=== PATIENT | female | born 1950 | race Caucasian/White ===

== ENCOUNTER 2018-10-24 10:15 | Inpatient (IN) ==
[2018-10-24] MEDS ORDERED: NS 1,000 ML IV ONE (11:04)
--- NOTE | 2018-10-24 11:05 | EKG Report ---
Test Performed on : 10/24/2018 10:20:09 AM Test Reason : ams Blood Pressure : / mmHG Vent. Rate : 075 BPM Atrial Rate : 075 BPM P-R Int : 180 ms QRS Dur : 100 ms QT Int : 420 ms P-R-T Axes : 049 -32 -08 degrees QTc Int : 469 ms Normal sinus rhythm. Left axis deviation Abnormal ECG When compared with ECG of 11-MAR-2016 21:49, QT has lengthened Unconfirmed Result
[2018-10-24] MEDS ORDERED: ZOFRAN IV ONE (11:10)
[2018-10-24 11:11] LABS: BLOOD TYPE ARTERIAL; SAMPLE BLOOD
[2018-10-24 11:12] LABS: ALLEN TEST YES; BE 2.4 mmoll (-3.0-3.0); HCO3-(ACT) 26.7 mmoll (20.0-26.0); O2(CT) 19.9 mL/dL (15.0-23.0); O2HB 94.9 % (95.0-99.0); PCO2(98.6) 38 mmHg (35-45); PO2(98.6) 80 mmHg (60-100); SAO2 97.3 % (95.0-100.0); THB 14.9 g/dL (11.5-17.4); pH(98.6) 7.45 (7.35-7.45)
[2018-10-24 11:15] LABS: MODALITY CANNULA
[2018-10-24 11:18] LABS: BASO# 0.01 X1000 (0.0-0.2); BASO% 0.1 % (0.0-0.8); EOS# 0.03 X1000 (0.0-0.7); EOS% 0.3 % (0.0-10.0); HEMATOCRIT 40.1 % (37.0-47.0); HEMOGLOBIN 14.4 g/dL (12.0-16.0); IMM GRAN# 0.08 X1000 (0.0-0.04); IMM GRAN% 0.7 % (0.0-0.5); LYMPH# 1.53 X1000 (1.2-3.4); LYMPH% 13.7 % (20.5-51.1); MCHC 35.9 g/dL (33-37); MCV 86.2 FL (81-99); MONO# 0.74 X1000 (0.11-0.59); MONO% 6.6 % (1.7-9.3); MPV 11.3 FL (7.4-10.4); NEUT# 8.74 X1000 (1.4-6.5); NEUT% 78.6 % (42.2-75.2); PLT 204 X1000 (130-400); RBC 4.65 XMIL (4.2-5.4); RDW 12.3 % (11.5-14.5); WBC 11.13 X1000 (4.8-10.8)
[2018-10-24 11:24] LABS: INR 0.89; PROTIME 12.7 Seconds (11.0-16.0); PTT 27.1 Seconds (22.3-41.8)
--- NOTE | 2018-10-24 11:27 | Diag Imaging Result Doc PS360 ---
EXAM: CHEST-PORTABLE HISTORY: ams TECHNIQUE: Portable chest single view COMPARISON: 03/31/2016 FINDINGS: The lungs are well expanded. The heart is not enlarged. The vessels are not distended. There are no infiltrates. No effusion identified. IMPRESSION: Negative exam. Electronically signed by Neto Riley 10/24/2018 11:24 AM
[2018-10-24 11:46] LABS: URINE SOURCE CLEAN CATCH
[2018-10-24 11:54] LABS: BILIRUBIN URINE NEGATIVE (NEGATIVE); BLOOD URINE NEGATIVE (NEGATIVE); COLOR STRAW; GLUCOSE URINE NEGATIVE (NEGATIVE); KETONE URINE NEGATIVE (NEGATIVE); LEUKOCYTES URINE NEGATIVE (NEGATIVE); NITRITE URINE NEGATIVE (NEGATIVE); PROTEIN URINE NEGATIVE (NEGATIVE); TURBIDITY URINE CLEAR (CLEAR); UROBILINOGEN URINE NORMAL (NORMAL)
[2018-10-24 11:55] LABS: UR EPITHELIAL CELLS <10 /HPF (<10); URINE BACTERIA NEGATIVE /HPF; URINE RBC <10 /HPF (<10); URINE WBC <10 /HPF (<10)
[2018-10-24 11:56] LABS: CREATININE 1.7 mg/dL (0.5-0.9)
[2018-10-24 11:57] LABS: ALB/GLOB RATIO 1.7; ALBUMIN 4.6 g/dL (3.5-5.0); MAGNESIUM 1.1 mg/dL (1.5-2.7); TOTAL BILIRUBIN 0.42 mg/dL (0.20-1.00); TOTAL PROTEIN 7.3 g/dL (6.3-8.3)
[2018-10-24] MEDS ORDERED: LEVAQUIN 750 MG/D5W 750 MG/150 ML IVPB IV ONE (12:06)
[2018-10-24 12:09] LABS: CK INDEX 1.9 (0.0-2.5); CK-MB 6.86 ng/mL (0.0-5.0)
--- NOTE | 2018-10-24 12:21 | Diag Imaging Result Doc PS360 ---
EXAM: CT HEAD W/O CONTRAST HISTORY: Head injury TECHNIQUE: CT head without contrast COMPARISON: None. FINDINGS: No parenchymal hemorrhage. No epidural or subdural hematoma. No subarachnoid hemorrhage. There are chronic microvascular ischemic changes. No mass identified on this noncontrasted exam. No hydrocephalus. No skull fracture. IMPRESSION: 1.No hemorrhage. No injury. 2.Chronic microvascular ischemic changes. This exam was performed using automated exposure control, adjustment of mA or kV according to patient size, and/or use of iterative reconstruction technique. Electronically signed by Neto Riley 10/24/2018 12:19 PM
--- NOTE | 2018-10-24 12:25 | Diag Imaging Result Doc PS360 ---
EXAM: CT ABDOMEN/PELVIS W/O CONTRAST 10/24/2018 HISTORY: colitis, divertilitis TECHNIQUE: This exam was performed using automated exposure control, adjustment of mA or kV according to patient size, and/or use of iterative reconstruction technique. COMMENT: There is some patchy air trapping which is particularly notable in the right lower lobe. There is minimal fluid in the pericardium. There is a granuloma in the spleen. There is no evidence of nephrolithiasis or hydronephrosis. There has been cholecystectomy. There is no evidence of bowel obstruction. There is a fat-containing umbilical hernia. There is no evidence of appendicitis. The urinary bladder is not distended. There is no evidence of free fluid or pelvic masses. There is degenerative disc disease at L5-S1 and bilateral spondylolysis at L5. No evidence of bowel obstruction or colitis is present. There are a few scattered colonic diverticula. IMPRESSION: Diverticulosis coli. No evidence of acute diverticulitis. Electronically signed by Luis Dickerson 10/24/2018 12:23 PM
--- NOTE | 2018-10-24 12:54 | PROVIDER DOCUMENTATION ---
This chart was entered by Kim Guzman Scribe, acting as scribe for Landy Valentine MD. HPI-General Adult - General Chief Complaint: General Adult Stated Complaint: AMS, N/V Time Seen by Provider: 10/24/18 10:36 Source: patient, EMS Allergies/Adverse Reactions: Patient Allergies Allergy/AdvReac Type Severity Reaction Status Date / Time haloperidol [From Haldol] Allergy Unknown Verified 05/30/18 10:51 haloperidol lactate * Allergy Unknown Verified 05/30/18 10:51 [From Haldol] Penicillins Allergy Unknown Verified 05/30/18 10:51 Home Medications: Home Medication List Medication Instructions Recorded Confirmed Last Taken Type Albuterol Sulfate [Proair Hfa] 2 puff INH Q4H PRN PRN 01/10/13 03/31/16 03/10/16 21:00 History 1 Furosemide [Lasix] 80 mg PO DAILY 01/10/13 03/31/16 03/10/16 09:00 History 1 Glipizide [Glipizide Xl] 5 mg PO DAILY 01/10/13 03/31/16 03/10/16 09:00 History 1 Omeprazole 20 mg PO DAILY 01/10/13 03/31/16 03/10/16 09:00 History 1 Allopurinol 100 mg PO BID #0 03/19/16 03/31/16 03/10/16 21:00 Rx 1 Benztropine [Cogentin] 1.5 mg PO BID 30 Days tablet 03/19/16 03/31/16 Unknown Rx Fluphenazine [Prolixin] 20 mg PO BID 30 Days tablet 03/19/16 03/31/16 Unknown Rx Magnesium Chloride [Mag64] 128 mg PO DAILY #0 03/19/16 03/31/16 03/10/16 21:00 Rx 1 Magnesium Oxide [Mag-Ox] 400 mg PO BID #7 tablet 03/19/16 03/31/16 Unknown Rx Melatonin 5 mg PO QHS #30 tablet 03/19/16 03/31/16 Unknown Rx Metformin [Glucophage] 1,000 mg PO BID CC #60 tablet 03/19/16 03/31/16 Unknown Rx Multivit-Min/Folic Acid/Vit K1 400 mcg PO DAILY #30 capsule 03/19/16 03/31/16 Unknown Rx [Multi For Her 50 Plus Softgel] [place]-3 Fatty Acids [Fish Oil] 300 mg PO BID #0 03/19/16 03/31/16 03/10/16 21:00 Rx 1 Prazosin [Minipress] 1 mg PO QHS #30 capsule 03/19/16 03/31/16 Unknown Rx Simvastatin 80 mg PO DAILY #30 tablet 03/19/16 03/31/16 Unknown Rx Trazodone [Desyrel] 50 mg PO QHS #30 tablet 03/19/16 03/31/16 Unknown Rx Allopurinol 300 mg PO DAILY 03/31/16 03/31/16 Unknown History LISINOpril [Prinivil] 2.5 mg PO DAILY 03/31/16 03/31/16 Unknown History Levothyroxine [Synthroid] 50 microgm PO DAILY@0700 04/04/16 04/05/16 Unknown History CefDINIR [Omnicef] 300 mg PO BID #14 capsule 04/07/16 Unknown Rx Methylprednisolone [Medrol Dosepak] 4 mg PO DIRECTED #1 package 04/07/16 Unknown Rx - History of Present Illness -Gen Adult Nature of Presenting Problems: 68 yof presents to the ed via ems for diffrent complaints. daughter at bedside st pt has not urinate in 3 days and pt has been confused. pt c/o n/v/d .pt on exam has no tenderness to abdomen, has ble pain with palpation, tremor to bilateral hands Location of Pain/Injury: reports: lower extremity (pain) Quality of Pain: reports: aching Severity: reports: moderate Onset/Duration: reports: unsure Timing: reports: still present Context/Activities at Onset: reports: light activity Modifying Factors: improves with: nothing. worse with: palpation Associated Symptoms: reports: diarrhea, malaise, nausea, vomiting, weakness. denies: back/neck pain, chest pain, cough, fever/chills Similar Symptoms Previously?: No Recently seen or treated by another doctor?: No Review of Systems - Adult - REVIEW OF SYSTEMS - ADULT ROS:: ROS per family (daughter) Constitutional: reports: [place]. denies: chills, fever Eyes: reports: no symptoms reported Ears, Nose, Mouth & Throat: reports: no symptoms reported Cardiovascular: denies: chest pain, palpitations Respiratory: denies: shortness of breath, wheezing Gastrointestinal: reports: see HPI, diarrhea, nausea, vomiting Genitourinary: reports: no symptoms reported Musculoskeletal: reports: other (BLE pain). denies: back pain, neck pain Integumentary: reports: no symptoms reported Neurological: reports: see HPI, tremors (hands), other (ams mild). denies: dizziness/vertigo, headache/migraines, numbness, paresthesia, slurred speech Psychiatric: reports: no symptoms reported Endocrine: reports: no symptoms reported Hematologic/Lymphatic: reports: no symptoms reported Allergic/Immunologic: reports: no symptoms reported All Other Systems: Reviewed and Negative Past History - Adult - PAST MEDICAL HISTORY-ADULT Review of Records: reports: Nursing Assessment Review, Medications Reviewed Major Childhood Illnesses: reports: denies history Cardiovascular: reports: denies history Respiratory: reports: asthma, COPD Gastrointestinal: reports: denies history Obstetrical/Gynecological: reports: denies history Genitourinary: reports: denies history Musculoskeletal: reports: denies history Neurological: reports: denies history Endocrine/Immune: reports: Diabetes, thyroid disorder Other Conditions: reports: denies history - PRIOR SURGERIES/PROCEDURES Surgical/Procedure History: reports: none - IMMUNIZATION STATUS Childhood Immunizations: See Nurse Assessment Flu Vaccine: See Nurse Assessment - FAMILY HISTORY Family History: reviewed, not pertinent - SOCIAL HISTORY Smoking: cigarettes, less than 1 pack/day Provider spent 3-5 mins advising pt. on dangers of tobacco.: Discussed manners to quit use, and f/u contacts for add'l counseling. Substance Use: denies Alcohol Use Frequency: never Living Situation: family Physical Exam-General - PHYSICAL EXAM-ADULT Initial Vital Signs Reviewed: Yes - CONSTITUTIONAL General Appearance: appears well, alert, obese - EYES Eyes: PERRL/EOMI, pink conjunctivae - HEAD, EARS, NOSE, MOUTH & THROAT HENMT: moist mucous membranes - NECK Neck: full range of motion, supple, normal inspection - RESPIRATORY Respiratory: chest non-tender, lungs clear, normal breath sounds - CARDIOVASCULAR Cardiovascular: normal peripheral pulses, regular rate, rhythm - GASTROINTESTINAL (ABDOMEN) Abdominal Exam: normal bowel sounds, non tender, soft - LYMPHATIC Lymphatic: no adenopathy - MUSCULOSKELETAL Back Exam: normal inspection, no CVA tenderness, no vertebral tenderness Extremity: normal inspection, no pedal edema, normal capillary refill, pelvis stable, tenderness (BLE) - SKIN Integumentary: normal color, normal turgor, warm/dry - NEUROLOGIC Neurologic: grossly normal, no motor/sensory deficits - PSYCHIATRIC Psych/Mental Status: normal mood/affect, normal thought content, normal thought process, oriented x 3 Progress - PLAN OF CARE/RESULTS Progress/Plan/Lab Results: Vital Signs - 8 hr 10/24/18 10:21 Temperature 97.5 F L Pulse Rate 74 Respiratory Rate 16 Blood Pressure 135/65 O2 Sat by Pulse Oximetry 91 L Laboratory Results - last 24 hr 10/24/18 10/24/18 10/24/18 10:24 10:34 11:05 WBC 11.13 H RBC 4.65 Hgb 14.4 Hct 40.1 MCV 86.2 MCH 31.0 MCHC 35.9 RDW Std Deviation 12.3 Plt Count 204 MPV 11.3 H Immature Gran % (Auto) 0.7 H Neut % (Auto) 78.6 H Lymph % (Auto) 13.7 L [place] % (Auto) 6.6 Eos % (Auto) 0.3 Baso % (Auto) 0.1 Immature Gran # (Auto) 0.08 H Neut # (Auto) 8.74 H Lymph # (Auto) 1.53 [place] # (Auto) 0.74 H Eos # (Auto) 0.03 Baso # (Auto) 0.01 Specimen Type ARTERIAL Sample Site R RADIAL pH 7.45 pCO2 38 pO2 80 HCO3 26.7 H Base Excess 2.4 Oxyhemoglobin 94.9 L ABG O2 Sat (Calculated) 19.9 ABG O2 Saturation 97.3 ABG Carboxyhemoglobin 1.60 ABG Methemoglobin 1.0 Krzysztof Test YES A-a O2 Difference 72.0 Total Hemoglobin 14.9 Lactate 2.20 Liter Flow 2.0 Blood Gas Modality CANNULA FiO2 % 28.0 POC Glucose 209 H Orders Category Date Time Status Cardiac Monitoring DIRECTED Care 10/24/18 10:52 Active Finger Stick Blood Sugar (ED) DIRECTED Care 10/24/18 10:52 Active Oxygen Therapy- ED Nursing DIRECTED Care 10/24/18 10:52 Active Saline Loc NOW Care 10/24/18 10:52 Active CHEST-PORTABLE [RAD] Stat Exams 10/24/18 10:[address] HEAD W/O CONTRAST [CT] Stat Exams 10/24/18 10:54 Ordered ABG [RESP] Routine Lab 10/24/18 11:05 Completed CBC WITH ELECTRONIC DIFF [HEME] Stat Lab 10/24/18 10:34 Completed CK PROFILE [SP CHEM] Stat Lab 10/24/18 11:00 Received COMPREHENSIVE METABOLIC PANEL [CHEM] Stat Lab 10/24/18 11:00 Received LACTATE, PLASMA [CHEM] Stat Lab 10/24/18 11:21 Ordered LIPASE [CHEM] Stat Lab 10/24/18 11:00 Received MAGNESIUM [CHEM] Stat Lab 10/24/18 11:00 Received PHOSPHORUS [CHEM] Stat Lab 10/24/18 11:10 Ordered PROTIME WITH INR [COAG] Stat Lab 10/24/18 10:34 Received PTT [COAG] Stat Lab 10/24/18 10:34 Received TROPONIN T Stat Lab 10/24/18 10:34 Received URINALYSIS W/POSS RFLX CULT [URINALYSIS] Stat Lab 10/24/18 11:10 Ordered 0.9% Sodium Chloride Inj [Ns] 1,000 ml Med 10/24/18 11:04 Active IV 999 mls/hr Ondansetron [Zofran] Med 10/24/18 11:10 Discontinued 4 mg IV NOW ONE Altered Mental Status Stat Oth 10/24/18 10:52 Ordered EKG [EKG] Stat Ther 10/24/18 10:52 Draft Result Diagrams: 10/24/18 10:34 10/24/18 10:34 - EKG 1 Time of EKG reading by physician:: 10:20 EKG Read and Signed by:: Enrico Cifuentes EKG Interpretation (*Must complete 3 of following elements*): Abnormal Rate: 75 Rhythm: nsr [place]: left QRS: normal [place] Interval: normal ST Wave: normal Prior EKG Comparison: no prior EKG - XRAY 1 XRAY: Bilateral XRAY Study: Chest Impression: See EMR Report (EXAM: CHEST-PORTABLE HISTORY: ams TECHNIQUE: Portable chest single view COMPARISON: 03/31/2016 FINDINGS: The lungs are well expanded. The heart is not enlarged. The vessels are not distended. There are no infiltrates. No effusion identified. IMPRESSION: Negative exam. Electronically signed by Neto Riley 10/24/2018 11:24 AM 10/24/18 1124 Interpreting Physician: Neto Riley MD Dictated Date/Time: 10/24/18 1124 cc: Landy Valentine MD; Deion Moran Jr, MD) - CT/MRI 1 CT Study: Abdomen, Pelvis Impression: See EMR Report (EXAM: CT ABDOMEN/PELVIS W/O CONTRAST 10/24/2018 HISTORY: colitis, divertilitis TECHNIQUE: This exam was performed using automated exposure control, adjustment of mA or kV according to patient size, and/or use of iterative reconstruction technique. COMMENT: There is some patchy air trapping which is particularly notable in the right lower lobe. There is minimal fluid in the pericardium. There is a granuloma in the spleen. There is no evidence of nephrolithiasis or hydronephrosis. There has been chol ecystectomy. There is no evidence of bowel obstruction. There is a fat- containing umbilical hernia. There is no evidence of appendicitis. The urinary bladder is not distended. There is no evidence of free fluid or pelvic masses. There is degenerative disc disease at L5-S1 and bilateral spondylolysis at L5. No evidence of bowel obstruction or colitis is present. There are a few scattered colonic diverticula. IMPRESSION: Diverticulosis coli. No evidence of acute diverticulitis. Electronically signed by Luis Dickerson 10/24/2018 12:23 PM 10/24/18 1223 Interpreting Physician: Luis Dickerson MD Dictated Date/Time: 10/24/18 1220 cc: Landy Valentine MD; Deion Moran Jr, MD) 2 CT Study: Head Impression: See EMR Report (EXAM: CT HEAD W/O CONTRAST HISTORY: Head injury TECHNIQUE: CT head without contrast COMPARISON: None. FINDINGS: No parenchymal hemorrhage. No epidural or subdural hematoma. No subarachnoid hemorrhage. There are chronic microvascular ischemic changes. No mass identified on this noncontrasted exam. No hydrocephalus. No skull fracture. IMPRESSION: 1.No hemorrhage. No injury. 2.Chronic microvascular ischemic changes. This exam was performed using automated exposure control, adjustment of mA or kV according to patient size, and/or use of iterative reconstruction technique. Electronically signed by Neto Riley 10/24/2018 12:19 PM 10/24/18 1219 Interpreting Physician: Neto Riley MD Dictated Date/Time: 10/24/18 1217 cc: Landy Valentine MD; Deion Moran Jr, MD) - CONSULTS/PCP/HOSPITALIST Notification #1 *Consult/PCP/Hospitalist*: Dr. Mg/Rj RYAN Time Discussed: 12:54 Consult Disposition: Admit Departure - Departure Date of Disposition Decision: 10/24/18 Time of Disposition Decision: 12:53 DIAGNOSIS: Transient alteration of awareness, Hyponatremia Disposition: ADMITTED INPATIENT 09 Certified Medical Emergency: Emergent Condition: Stable Referrals and Follow-Ups: Deion Moran Jr, MD [Primary Care Provider] - - Critical Care Note This patient required my direct & personal management of CC.: No Attestation - Physician/ PAULINE Attestation Patient care was provided by Advanced Practice Provider:: No The physician spent face to face time with patient:: Yes Advanced Practice Provider documentation review:: Supervising physician onsite and consulted in the evaluation and care of this patient. The physician did have a face to face encounter with the patient. This chart was documented by the indicated scribe, (Kim Guzman Scribe) and accurately reflects the services I performed and decisions made by me, Landy Valentine MD, as attested by the provider's signature.
[2018-10-24] MEDS ORDERED: KLOR-CON PO ONE ×2 (13:06→19:24)
[2018-10-24] MEDS ORDERED: MAGNESIUM SULFATE 4 GM/S.W.I. 4 GM/100 ML IVPB IV ONE (13:06)
[2018-10-24] MEDS ORDERED: ZOFRAN IV PRN (14:32)
[2018-10-24] MEDS: NS 1,000 ML IV SCH (15:25)
[2018-10-24] MEDS ORDERED: LASIX IV ONE (16:59)
[2018-10-24] MEDS: HUMULIN R SUBQ SCH ×2 (17:13→20:53)
[2018-10-24 17:56] LABS: UR CREAT RANDOM 21.6 mg/dL (11-20); UR PROT RANDOM < 4.0 mg/dL
--- NOTE | 2018-10-24 17:57 | HISTORY AND PHYSICAL ---
PRIMARY CARE PHYSICIAN: Dr. Deion Moran. CHIEF COMPLAINT: Progressive weakness. HISTORY OF PRESENT ILLNESS: Ms. Mishra is a 68-year-old female with a history of COPD, schizoaffective disorder, hypothyroidism,and hypertension, who presents with 1 week of progressive weakness. She denies any specific area of weakness; rather, she has described more of a lethargy- type picture, having difficulty with activities of daily living including getting up and walking around, eating, dressing herself, etc. She has also had a low output of urination with inability to void for the past 3 days. Her daughter brought her to the [place] ER last week, and she was discharged home with instructions to follow up with her PCP. The symptoms have not improved since that time, and they decided to come in today. In the ER they had multiple labs and diagnostics done. A head CT was done and showed chronic changes, nothing acute. Abdomen and pelvis CT showed diverticulosis without evidence of acute diverticulitis; however, her chemistry did reveal a critical hyponatremia of 119. She did have an episode of nausea, vomiting and diarrhea this morning, but other than that, no episodes of volume loss. She is hemodynamically stable. Will admit her for further treatment and evaluation. PAST MEDICAL HISTORY: 1. CKD, baseline unknown. She is followed by Dr. James and is apparently set to have another evaluation in the coming days or weeks. 2. Schizoaffective disorder, on multiple psychiatric medications. 3. Hypertension. 4. Type 2 diabetes not requiring insulin. 5. Hypothyroidism. 6. Morbid obesity. 7. COPD requiring nocturnal oxygen. 8. History of cervical cancer. PAST SURGICAL HISTORY: 1. Appendectomy. 2. Cholecystectomy. SOCIAL HISTORY: She quit smoking some time ago. She lives with her sister, who is currently not at the bedside, but her daughter is there. No tobacco, alcohol or drug use. REVIEW OF SYSTEMS: A 14-point review of systems was obtained and found to be negative with the exception of the HPI. ALLERGIES: Haldol, penicillin. HOME MEDICATIONS: Not yet compiled by the nursing staff. Will update appropriately. PHYSICAL EXAMINATION: VITAL SIGNS: Blood pressure 124/64, heart rate 77, respiratory rate 18, 02 saturation 98% on nasal cannula, temperature 98.1. GENERAL: This is a disheveled-appearing 68-year-old female lying in the hospital bed, slightly lethargic but in no acute distress . NEUROLOGIC: She is a little bit slow to respond; however, she answers orientation questions correctly and follows commands without focal deficits. HEENT: Head is atraumatic and normocephalic. Her pupils are equal, round, and reactive to light. Her oral mucosa is slightly dry. NECK: Supple. Trachea is midline. There is no JVD. CHEST: Diminished at the bases but clear to auscultation bilaterally. CARDIOVASCULAR: Regular rate and rhythm. S1 and S2 noted. No murmurs. GI: Soft, nondistended, nontender. Bowel sounds are hypoactive. EXTREMITIES: No edema. Pulses 1+ bilaterally. DIAGNOSTIC DATA: Head CT is negative with chronic changes, nothing acute. Abdomen and pelvis CT shows diverticulosis. No evidence of diverticulitis. EKG: Sinus rhythm. No acute ST or T abnormalities. First-degree AV block. Chest x-ray is negative. WBCs 11.13, hemoglobin 14.4, hematocrit 40.1, platelet count 204. INR 0.89. ABG on 2 L nasal cannula: pH of 7.45, CO2 of 38, O2 of 80, bicarbonate of 26.7. Sodium is 120, potassium 3, chloride 73. CO2 of 27, anion gap 19, BUN 49, creatinine 1.7, glucose 181. Phosphorus is 3.3, magnesium 1.1, AST 22, ALT 23, alkaline phosphatase 54, CK 365, CK-MB 6.86, troponin negative. Protein 7.3, lactic acid 1.9. UA is negative. Urine osmolarity is 287. Random creatinine in the urine is 27.2. ASSESSMENT/PLAN: 1. Hyponatremia: The patient is slightly volume depleted, but she is also on multiple psychiatric medicines which could be causing syndrome of inappropriate antidiuretic hormone secretion. Her urine osmolality is greater than her serum osmolality, so syndrome of inappropriate antidiuretic hormone certainly is a possibility; however, we are waiting on urine sodium, and she is slightly volume depleted, so will give her some IV fluids and check a sodium every 6 hours. Will make any adjustments accordingly. 2. Hypokalemia, hypomagnesemia: Will replace those and recheck in the morning. 3. Chronic kidney disease: Exact stage unknown. Dr. James is following, and we will consult him. We have ordered comprehensive urine studies and will give IV fluids. Avoid any nephrotoxic agents. 4. Chronic obstructive pulmonary disease: Not in exacerbation. Continue her nocturnal oxygen and adjust appropriately. 5. Hypertension: Stable. Continue home medications once compiled. 6. Deep venous thrombosis prophylaxis with subcutaneous heparin. 7. Further recommendations to follow. Dictated by SHELBY Zhao for Kelsea Gallegos MD cc: SHELBY Zhao MD [facility]
[2018-10-24 18:54] LABS: MAGNESIUM 2.4 mg/dL (1.5-2.7); POTASSIUM 3.2 mmol/L (3.5-5.1)
[2018-10-24] MEDS: HEPARIN SUBQ SCH (20:57)
[2018-10-24] MEDS: MELATONIN PO SCH (20:57)
--- NOTE | 2018-10-24 23:16 | NEPHROLOGY CONSULTATION ---
DATE: 10/24/2018 REASON FOR CONSULTATION: Hyponatremia. HISTORY OF PRESENT ILLNESS: Ms. Mishra is a 68-year-old white female with schizoaffective disorder and tardive dyskinesia. She has hypertension, diabetes, obesity, hypothyroidism, COPD. She has been progressively worsening over the last several weeks. Certainly in the last 1 week she has had worsening weakness. She denies excessive thirst, but she has just become progressively unable to perform her normal activities of daily living. She went to the emergency room in [place] 1 week ago, and the family states that the only test was a urinalysis and she was treated with an antibiotic. Symptoms were persistent and unimproved, so she was brought to the emergency room today, where she was diagnosed with hyponatremia and admitted to the hospital. She states that she has had a problem with that before, but it has been many years. She relates a history of heart failure. No other new problems. No PND or orthopnea, swelling, etc. PAST MEDICAL HISTORY: As above. HOME MEDICATIONS: Include omeprazole, glipizide, furosemide, benztropine, melatonin, prazosin, trazodone, lisinopril, levothyroxine, methylprednisolone, Prolixin, metformin, potassium, rosuvastatin, nabumetone, magnesium, multivitamin, allopurinol. ALLERGIES: Haloperidol and penicillin. SOCIAL HISTORY: She lives with her sister. No current alcohol or tobacco, though she is a former smoker. FAMILY HISTORY: Otherwise noncontributory. REVIEW OF SYSTEMS: Otherwise noncontributory. PHYSICAL EXAMINATION: Vital Signs: Blood pressure 124/64, heart rate 77, afebrile. Generally: Obese white female, lying in bed. No distress. Skin: Warm and dry. HEENT: Conjunctivae are pink. Pupils are equal. Oropharynx is clear. She has periodic tongue movement. Neck: Supple. Trachea is midline. Neck vein distention is not present. Heart: PMI nondisplaced. Regular rate and rhythm without gallop or murmur. Lungs: Equal. No crackles or wheezes. Abdomen: Soft, nontender. Bowel sounds present. Extremities: No edema, clubbing, or cyanosis. Neurologic: Pill rolling hand movements bilaterally and lip-smacking. IMPRESSION: Hyponatremia. Euvolemic. Hypoosmotic. Most likely syndrome of inappropriate secretion of antidiuretic hormone. Her medications have been appropriately adjusted. She is receiving normal saline at 75 mL/h. I will recheck her sodium this evening. I counseled about free water restriction. We will check urine osmolality, sodium, and concomitant serum sodium and osmolality. cc: Lonny James MD [facility]
[2018-10-24] MEDS: TYLENOL PO PRN (23:17)
[2018-10-25] MEDS: SYNTHROID PO SCH (06:04)
[2018-10-25] MEDS: NS 1,000 ML IV SCH (06:04)
[2018-10-25] MEDS: PRILOSEC PO SCH (06:05)
[2018-10-25] MEDS: HUMULIN R SUBQ SCH ×4 (06:05→22:13)
[2018-10-25 07:58] LABS: HEMATOCRIT 41.6 % (37.0-47.0); HEMOGLOBIN 14.8 g/dL (12.0-16.0); MCH 31.7 PG (27-31); MCHC 35.6 g/dL (33-37); MCV 89.1 FL (81-99); MPV 10.9 FL (7.4-10.4); RBC 4.67 XMIL (4.2-5.4); RDW 12.6 % (11.5-14.5); WBC 8.86 X1000 (4.8-10.8)
[2018-10-25] MEDS: HEPARIN SUBQ SCH ×2 (08:10→22:12)
[2018-10-25 08:58] LABS: CALCIUM 9.5 mg/dL (8.8-10.2); CREATININE 1.2 mg/dL (0.5-0.9); PHOSPHORUS 2.6 mg/dL (2.7-4.5); POTASSIUM 3.4 mmol/L (3.5-5.1)
[2018-10-25] MEDS ORDERED: POTASSIUM PHOSPHATE 20 MMOL in NS 250 ML IV ONE (09:26)
--- NOTE | 2018-10-25 14:40 | NEPHROLOGY PROGRESS NOTE ---
DATE: 10/25/2018 TIME SEEN: 0840. SUBJECTIVE: Ms. Mishra is actually standing at her bedside. She is looking for her breakfast. She continues to be attached to her IV of normal saline. Slight wobbly on her feet. The patient was placed in a chair. OBJECTIVE: Vital signs: Her most recent vital signs, temperature 97.6, blood pressure 117/40, heart rate 75, respirations 16. She is on room air. Last recorded saturation 93%. She has had 0 recorded in. She is on a fluid restriction. She has had 3,280 out to Mosley catheter. Labs: Sodium is 126, potassium 3.4, chloride is 87, CO2 23, BUN 32, creatinine 1.2, glucose 158. The patient has an anion gap of 16, calcium of 9.5, phosphorus 2.6, magnesium 2.1. She has an albumin of 4. White count 8.86, hemoglobin 14.8, hematocrit 41.6, with a platelet count of 183,000. PHYSICAL EXAMINATION: General: This is a 68-year-old white female. She appears frail. No acute distress. Skin: Warm and dry. HEENT: Normocephalic, atraumatic. Conjunctiva is pale. She has SADIE. Mucous membranes are dry. Neck: Supple. Trachea midline. No evidence of JVD. Cardiovascular: She is regular rate and rhythm. She is without murmur or gallop. Lungs: Clear to auscultation bilaterally. Equal excursion. On room air. Abdomen: Large, round, soft, nontender. Positive bowel sounds. Genitourinary: Mosley catheter is in place with adequate urine documented out. Extremities: Have no edema. No clubbing or cyanosis. Neurological: The patient continues to have fine tremors to bilateral upper extremities. She is awake to person and to place. She is forgetful to most recent events. ASSESSMENT AND PLAN: 1. Hyponatremia. The patient appears to be euvolemic. She has hypoosmotic with a low sodium and urine osmolality. More than likely this is syndrome of inappropriate secretion of ADH. Her medications have been adjusted appropriately. She has received normal saline at 75 mL an hour with Lasix 40 mg x1 dose yesterday evening. She remains on a free water fluid restriction. Her sodium has corrected from 120 to 126. We have labs ordered again at 1 p.m. to evaluate any further correction. We will stop her normal saline at this time and will look for these labs at a later date. 2. Acute kidney injury. The patient's creatinine has slowly improved. It is now down to 1.2 from 1.7 with a noted baseline of 0.7 approximately several years ago. No current labs. 3. Electrolytes and acid-base balance. As mentioned above with her sodium. The rest is stable. 4. Anemia. This is in target. 5. Altered mental status. This is slowly improving. I would like to thank you for allowing us to follow with this patient. Dictated by SHELBY Mistry for Lonny James MD cc: SHELBY Mistry MD
[2018-10-25] MEDS ORDERED: D5W 250 ML IV SCH (15:30)
--- NOTE | 2018-10-25 18:42 | PROGRESS NOTE ---
DATE: 10/25/2018 SUBJECTIVE: The patient is awake and more alert today. She is asking for her home medications to be restarted. OBJECTIVE: Vital Signs: Temperature 98.2 degrees, blood pressure 126/59, heart rate 72, respirations 20, O2 saturation is 100% on room air. General: This is a chronically ill-appearing elderly female sitting at the edge of the bed in no acute distress. Heart: S1, S2 normal. Regular rate and rhythm. Lungs: Equal air entry bilaterally. No crackles. No rales. Abdomen: Positive bowel sounds. Soft, nontender, nondistended. Extremities: Trace pedal edema. Neurologic: The patient is alert and oriented x4. LABS: White blood cell count 8.8, hemoglobin 14, hematocrit 41, platelets 183,000. Sodium 126, potassium 3.4, chloride 87, CO2 23, BUN 32, creatinine 1.2, glucose 158, phosphorus 2.6, magnesium 2.1. ASSESSMENT AND PLAN: 1. Symptomatic hyponatremia. The patient's sodium has improved. The patient is now on a fluid restriction and normal saline has been discontinued. The patient was on Prolixin, which does cause a syndrome of inappropriate antidiuretic hormone phenomenon. Further management as directed by the frame sample and pattern supervisor. 2. Acute kidney injury . Improved. 3. Schizoaffective disorder. The patient has been on Prolixin for over 10 years and she has never had an issue with low sodium. At this time, her antipsychotic medication is on hold due to her low sodium. She will likely need to be started on an alternative antipsychotic. 4. Diabetes mellitus type 2. Continue on sliding scale insulin. Continue to hold the metformin. 5. Hypothyroidism. Continue on Synthroid. 6. Morbid obesity. Aware. 7. Hypokalemia. We will replace potassium. 8. Hypophosphatemia. We will replace the phosphorus. 9. Disposition. Will plan to discharge the patient home once she is medically stable. Physical Therapy has been consulted. cc: Kelsea Gallegos MD MTDD
[2018-10-25] MEDS: MELATONIN PO SCH (22:13)
[2018-10-26] MEDS: HUMULIN R SUBQ SCH ×4 (06:27→20:39)
[2018-10-26] MEDS: PRILOSEC PO SCH (06:27)
[2018-10-26] MEDS: SYNTHROID PO SCH (06:27)
[2018-10-26 08:02] LABS: AGAP 12; CHLORIDE 92 mmol/L (98-107); POTASSIUM 3.2 mmol/L (3.5-5.1); SODIUM 132 mmol/L (136-145); TCO2 28 mmol/L (25-35)
[2018-10-26 08:03] LABS: BUN 17 mg/dL (8-22); CALCIUM 9.7 mg/dL (8.8-10.2); COSMO 269; CREATININE 0.9 mg/dL (0.5-0.9); ESTIMATED GFR > 60; GLUCOSE 156 mg/dL (70-104); PHOSPHORUS 2.5 mg/dL (2.7-4.5)
[2018-10-26] MEDS ORDERED: KLOR-CON PO ONE (08:31)
[2018-10-26] MEDS: HEPARIN SUBQ SCH ×2 (09:21→20:35)
[2018-10-26] MEDS ORDERED: D5W 250 ML IV SCH (09:45)
[2018-10-26] MEDS ORDERED: DULCOLAX PR ONE (10:09)
[2018-10-26] MEDS: COLACE PO SCH ×2 (13:17→20:36)
[2018-10-26] MEDS: MIRALAX PO SCH ×2 (13:17→20:36)
--- NOTE | 2018-10-26 13:28 | PROGRESS NOTE ---
DATE: 10/26/2018 SUBJECTIVE: The patient is awake and alert. She states that she feels a lot better. She complains of constipation. OBJECTIVE: Vital Signs: Temperature 98.1 degrees, blood pressure 129/62, heart rate 70, respirations 18, O2 saturation is 96% on room air. General: This is an elderly female sitting up in bed, in no acute distress. Heart: S1, S2 normal. Regular rate and rhythm. Lungs: Clear to auscultation bilaterally. No wheezing. No rales. No rhonchi. Abdomen: Positive bowel sounds. Soft, nontender, nondistended. Extremities: No edema. No cyanosis. Neurologic: The patient is alert and oriented x3. Labs: Sodium 132, potassium 3.2, chloride 92, CO2 28, BUN 17, creatinine 0.6, glucose 156, phosphorus 2.5. ASSESSMENT AND PLAN: 1. Hyponatremia. Slowly improving. The patient is currently on a fluid restriction. Further management as per the stroke belt sander operator. 2. Acute kidney injury. Resolved. 3. Schizoaffective disorder. I spoke to Dr. Carter, the patient's outpatient psychiatrist, and he has recommended to start the patient on perphenazine. He stated that if the patient remains off of her antipsychotic medication for too long, she may have a psychotic break. We will start the recommended medication today and monitor her sodium level closely. 4. Hypothyroidism. Continue on Synthroid. 5. Diabetes mellitus type 2. Continue on sliding scale insulin. 6. Constipation. We will start the patient on laxative therapy. 7. Hypokalemia. Will replace the potassium. 8. Deep vein thrombosis prophylaxis. Continue on heparin. 9. Disposition. Continue to work with physical therapy. The patient will be discharged home once medically stable. cc: Kelsea Gallegos MD MTDD
--- NOTE | 2018-10-26 14:54 | NEPHROLOGY PROGRESS NOTE ---
DATE: 10/26/2018 SUBJECTIVE: Patient resting in bed. She is awake and alert. She is able to tell me that she has not had a bowel movement in 2 days. OBJECTIVE: Vital Signs: Temperature 98.5, pulse 69, respiratory rate 18, blood pressure 131/65. Intake 860 mL. Output 3.3 L. General: This is a elderly female resting in bed. Awake and alert. She does not appear in acute distress. HEENT: Normocephalic, atraumatic. Conjunctivae pale. Oral mucosa is dry. Neck: Supple, without JVD. Cardiovascular: Regular rate and rhythm. No murmur or gallop. Pulmonary: She is clear bilaterally. Has equal excursion. Abdomen: Soft, positive bowel sounds. Obese. Genitourinary: Not inspected. Mosley catheter. Extremities: No clubbing, cyanosis, edema. Integumentary: Skin is warm and dry. Neurologic: Grossly nonfocal. She is slow to respond, but appropriate. LABORATORY DATA: Sodium 132, potassium 3.2, CO2 28, creatinine 0.9. ASSESSMENT AND PLAN: Hyponatremia, SIADH. She continues on free water restriction. Her sodium corrected significantly over the last 24 hours. We will give her a fluid bolus of D5 and recheck labs midday. She has had no untoward effect from the rapid rise of her sodium. But we would not want her to rise further in the next 24 hours, if possible. Dictated by SHELBY Johns for Lonny James MD cc: Lonny James MD
[2018-10-26] MEDS: MELATONIN PO SCH (20:35)
[2018-10-26] MEDS: TRILAFON PO SCH (20:36)
[2018-10-26] MEDS: SENOKOT PO SCH (20:39)
[2018-10-27] MEDS: HUMULIN R SUBQ SCH ×4 (06:16→21:52)
[2018-10-27] MEDS: PRILOSEC PO SCH (06:17)
[2018-10-27] MEDS: SYNTHROID PO SCH (06:17)
[2018-10-27 08:50] LABS: AGAP 12; BUN 12 mg/dL (8-22); CALCIUM 10.2 mg/dL (8.8-10.2); CHLORIDE 94 mmol/L (98-107); COSMO 271; CREATININE 0.9 mg/dL (0.5-0.9); ESTIMATED GFR > 60; GLUCOSE 157 mg/dL (70-104); SODIUM 134 mmol/L (136-145); TCO2 28 mmol/L (25-35)
[2018-10-27] MEDS: SENOKOT PO SCH ×2 (08:56→21:51)
[2018-10-27] MEDS: HEPARIN SUBQ SCH ×2 (08:56→21:51)
[2018-10-27] MEDS: COLACE PO SCH ×2 (08:56→21:49)
[2018-10-27] MEDS: MIRALAX PO SCH ×2 (08:56→21:49)
[2018-10-27] MEDS ORDERED: NEUTRA-PHOS PO ONE (09:20)
[2018-10-27] MEDS ORDERED: GLUCOTROL XL PO ONE (12:42)
[2018-10-27] MEDS: GLUCOPHAGE PO ONE (12:44)
[2018-10-27] MEDS: COGENTIN PO SCH ×2 (12:44→21:50)
[2018-10-27] MEDS: MELATONIN PO SCH (21:49)
[2018-10-27] MEDS: TRILAFON PO SCH (21:49)
[2018-10-27] MEDS: GLUCOPHAGE PO SCH (21:51)
--- NOTE | 2018-10-27 22:43 | PROGRESS NOTE ---
DATE: 10/27/2018 SUBJECTIVE: The patient is awake and alert. She states that she had a bowel movement. OBJECTIVE: Vital Signs: Temperature 97 degrees, blood pressure 128/49, heart rate 74, respirations 18, O2 saturation 99% on room air. General: This is an elderly female lying in bed in no acute distress. Heart: S1, S2 normal. Regular rate and rhythm. Lungs: Clear to auscultation bilaterally. Abdomen: Positive bowel sounds. Soft, nontender, nondistended. Extremities: No edema, no cyanosis. Neurologic: The patient is alert and oriented x4. No focal neurologic deficits noted. Cranial nerves 2 through 12 intact. LABORATORY DATA: Sodium 134, potassium 4, chloride 94, CO2 28, BUN 12, creatinine 0.9, glucose 157, phosphorus 2, magnesium 1.7, albumin 4. ASSESSMENT AND PLAN: 1. Hyponatremia, improved. The patient's antipsychotics have been changed. We will continue to monitor the patient another 24 hours in the hospital. 2. Acute kidney injury, resolved. 3. Schizoaffective disorder. Continue on perphenazine and benztropine. The patient will follow up with Dr. Carter upon discharge from the hospital. 4. Hypothyroidism. Continue on Synthroid. 5. Diabetes mellitus type 2. Continue on sliding scale insulin. 6. Constipation. Improved. 7. Hypophosphatemia. We will replace the patient's phosphorus. 8. Diabetes mellitus. Continue on metformin and glipizide. 9. Deep vein thrombosis prophylaxis. Continue on heparin. DISPOSITION: The patient will likely be discharged home tomorrow. cc: Kelsea Gallegos MD
[2018-10-28] MEDS: PRILOSEC PO SCH (06:00)
[2018-10-28] MEDS: SYNTHROID PO SCH (06:00)
[2018-10-28] MEDS: HUMULIN R SUBQ SCH ×4 (06:14→21:33)
[2018-10-28 08:16] LABS: ALBUMIN 4.1 g/dL (3.5-5.0); CALCIUM 10.2 mg/dL (8.8-10.2); CREATININE 1.1 mg/dL (0.5-0.9); PHOSPHORUS 1.9 mg/dL (2.7-4.5); POTASSIUM 4.2 mmol/L (3.5-5.1)
[2018-10-28] MEDS: COGENTIN PO SCH ×2 (09:56→21:26)
[2018-10-28] MEDS: HEPARIN SUBQ SCH ×2 (09:59→21:29)
[2018-10-28] MEDS: COLACE PO SCH ×2 (09:59→21:33)
[2018-10-28] MEDS: GLUCOPHAGE PO SCH ×2 (09:59→21:33)
[2018-10-28] MEDS: GLUCOTROL XL PO SCH (10:00)
[2018-10-28] MEDS: SENOKOT PO SCH ×2 (10:00→21:33)
[2018-10-28] MEDS: MIRALAX PO SCH ×2 (10:00→21:33)
[2018-10-28] MEDS: GLUCOPHAGE PO ONE (12:22)
[2018-10-28] MEDS: NEUTRA-PHOS PO SCH ×4 (12:22→21:27)
[2018-10-28] MEDS: MELATONIN PO SCH (21:26)
[2018-10-28] MEDS: TRILAFON PO SCH (21:28)
[2018-10-29] MEDS: TYLENOL PO PRN (06:04)
[2018-10-29] MEDS: PRILOSEC PO SCH (06:04)
[2018-10-29] MEDS: SYNTHROID PO SCH (06:04)
[2018-10-29] MEDS: HUMULIN R SUBQ SCH (06:14)
[2018-10-29 07:25] LABS: HEMATOCRIT 37.9 % (37.0-47.0); HEMOGLOBIN 12.7 g/dL (12.0-16.0); MCH 31.3 PG (27-31); MCHC 33.5 g/dL (33-37); MCV 93.3 FL (81-99); MPV 10.2 FL (7.4-10.4); RBC 4.06 XMIL (4.2-5.4); RDW 12.9 % (11.5-14.5); WBC 7.55 X1000 (4.8-10.8)
[2018-10-29 07:36] LABS: ALBUMIN 3.8 g/dL (3.5-5.0); CALCIUM 9.8 mg/dL (8.8-10.2); PHOSPHORUS 3.4 mg/dL (2.7-4.5); POTASSIUM 4.1 mmol/L (3.5-5.1)
--- NOTE | 2018-10-29 07:48 | NEPHROLOGY PROGRESS NOTE ---
DATE: 10/28/2018 SUBJECTIVE: Patient is sitting up on the bedside toilet, no complaints. OBJECTIVE: Vital Signs: Temperature 98.2 degrees, pulse 81, respiratory rate 16, blood pressure 105/58. Intake 725 mL. Output 2 L voided. General: This is an elderly female, sitting on the toilet, no acute distress. HEENT: Normocephalic, atraumatic. SADIE. Neck: Supple. Does not appear to have JVD. Cardiovascular: Regular. Pulmonary: She has equal excursion. No increased work of breathing. Abdomen: Obese. Genitourinary: Voiding. Extremities: No clubbing, cyanosis. No edema. Integumentary: Skin is pale, warm, and dry. LAB DATA: Sodium 133 (134). ASSESSMENT/PLAN: Hyponatremia, syndrome of inappropriate secretion of antidiuretic hormone. Continue on free water restriction. She has had multiple medications adjusted. Sodium has been stable at this level now for greater than 36 to 48 hours. Noted, the patient will likely need to continue free water restriction and focus on electrolyte-containing fluids as an outpatient. From a renal perspective, we have nothing further to add. Please do not hesitate to contact us if we can be of further assistance. Dictated by SHELBY Johns for Lonny James MD cc: Lonny James MD
[2018-10-29 07:54] VITALS: BP 118/54
--- NOTE | 2018-10-29 08:37 | PROGRESS NOTE ---
DATE: 10/28/2018 SUBJECTIVE: The patient is awake and alert. She has no complaints. OBJECTIVE: Vital signs: Temperature 97 degrees, blood pressure 120/55, heart rate 73, respirations 14, O2 saturation is 100% on room air. General: This is an elderly female, lying in bed, in no acute distress. Heart: S1, S2 normal. Regular rate and rhythm. Lungs: Clear to auscultation bilaterally. No wheezing. No rales. No rhonchi. Abdomen: Positive bowel sounds. Soft, nontender, nondistended. Extremities: No edema. No cyanosis. Neurologic: The patient is alert and oriented x4. LABS: Sodium 133, potassium 4.2, chloride 92, CO2 of 27, BUN 12, creatinine 1.1. Glucose 160. Phosphorus 1.9. ASSESSMENT AND PLAN: 1. Hyponatremia. Stable. We will monitor the patient today. If her sodium remains stable, she can be discharged home tomorrow. 2. Schizoaffective disorder. Continue on the current medications. 3. Hypothyroidism. Continue on Synthroid. 4. Diabetes mellitus type 2. Continue on sliding scale insulin. 5. Hypophosphatemia. The patient has been started on Neutra-Phos. 6. Diabetes mellitus type 2. Continue on metformin and glipizide. 7. Deep vein thrombosis prophylaxis. Continue on heparin. cc: Kelsea Gallegos MD
[2018-10-29] MEDS: MIRALAX PO SCH (09:10)
[2018-10-29] MEDS: COLACE PO SCH (09:10)
[2018-10-29] MEDS: SENOKOT PO SCH (09:11)
[2018-10-29] MEDS: COGENTIN PO SCH (09:12)
[2018-10-29] MEDS: GLUCOPHAGE PO SCH (09:12)
[2018-10-29] MEDS: HEPARIN SUBQ SCH (09:13)
[2018-10-29] MEDS: GLUCOTROL XL PO SCH (09:14)
[2018-10-29] MEDS: NEUTRA-PHOS PO SCH (09:14)
--- NOTE | 2018-10-30 10:35 | DISCHARGE SUMMARY ---
ADMISSION DATE: 10/24/2018 DISCHARGE DATE: 10/29/2018 FINAL DISCHARGE DIAGNOSES: 1. Hyponatremia secondary to syndrome of inappropriate antidiuretic hormone secretion . 2. Schizoaffective disorder. 3. Hypothyroidism. 4. Acute kidney injury. 5. Diabetes mellitus type 2. 6. Hypophosphatemia. 7. Hypertension. CONSULTATIONS: Nephrology consultation with Dr. Lonny James. HOSPITAL COURSE: Ms. Mishra is a 68-year-old female with a history of schizoaffective disorder, hypertension and diabetes mellitus who presented to the ER with confusion. On admission, the patient was noted to have a sodium of 119. The patient was admitted to the Hospitalist Service and Nephrology was consulted. Urine studies were obtained and it was noted that the patient appeared to have SIADH. After reviewing the patient's medications, it was noted that the patient was on an antipsychotic known for causing SIADH. All of the patient's psychiatric medications were discontinued, and the patient was initially treated with IV fluids and then switched to fluid restriction. The patient's sodium slowly improved over the course of the hospital stay with fluid restriction and holding the patient's antipsychotic medication. The case was discussed with Dr. Carter, the patient's psychiatrist, who recommended starting the patient on Trilafon 8 mg at bedtime. This medication was initiated during the hospitalization and the patient was monitored while on it. Her sodium remained stable and she continued to improve clinically. The patient was also educated about the fluid restriction. On the day of discharge, the patient was noted to have a sodium of 135. The patient was then cleared for discharge home. DISCHARGE MEDICATIONS: 1. Trilafon 8 mg oral at bedtime. 2. Omeprazole 20 mg p.o. daily. 3. Glipizide 5 mg p.o. daily. 4. Cogentin 1.5 mg oral twice a day. 5. Melatonin 5 mg oral at bedtime. 6. Prazosin 1 mg oral at bedtime. 7. Trazodone 50 mg oral at bedtime. 8. Lisinopril 2.5 mg oral daily. 9. Synthroid, half a tablet oral daily. 10. Metformin 500 mg oral every morning. 11. Metformin 1000 mg oral at bedtime. 12. Lovastatin 40 mg oral at bedtime. 13. Multivitamin 1 tab oral daily. 14. Allopurinol 100 mg oral daily. DISCHARGE DIET: 1800 [place] [employer] diet. ACTIVITY: As tolerated. FOLLOW-UP INSTRUCTIONS: The patient has been advised to follow up with Dr. Carter this week as scheduled. The patient will also need to follow up with Dr. Moran this week. cc: MD Deion Resendiz MD
== END 2018-10-29 12:38 | disposition home or self-care (01) | DRG 644 ==
LOC: SUPCPDRO → ED 10:15 → EDIPHOLD 13:56 → 3N 14:04
PROVIDERS: ATTEND Internal Medicine
CPT/HCPCS: 70450; 71010; 71045; 74176; 80053; 80069; 81001; 82550; 82553; 82570; 82805; 82948; 83605; 83690; 83735; 83930; 83935; 84100; 84132; 84156; 84295; 84300; 84443; 84484; 85025; 85027; 85610; 85730; 87205; 93005; 94761; 96365; 96366; 96375; 99285; A9270; J1644; J1956; J2405; J3475; J7030; J7050; XXXXX